=== PATIENT | female | born 1990 | race Caucasian/White ===

== ENCOUNTER 2020-01-10 19:27 | Observation (INO) ==
[2020-01-10 21:42] LABS: Bacteria,Urine Occasional /HPF (Few); Bilirubin,Urine Negative (Negative); Blood, Urine Negative (Negative); Glucose,Urine (UA) Negative (Negative); Ketones,Urine Negative (Negative); Mucus,Urine Occasional /LPF (Occasional); Nitrite,Urine Negative (Negative); Protein,Urine Negative; Squamous Epithelial Cell,Urine Occasional /HPF (0-10); Urine Appearance CLEAR (Clear); Urine Color Yellow (Yellow); Urine Specific Gravity 1.014 (1.001-1.035); Urine Urobilinogen < 2.0 EU/DL (0.2-1.0)
[2020-01-10] MEDS ORDERED: ONDANSETRON 4 MG/2 ML VIAL IV ONE (23:06)
[2020-01-10] MEDS ORDERED: SODIUM CHLORIDE 0.9% 1,000 ML IV STA (23:06)
[2020-01-10] MEDS ORDERED: MORPHINE 4 MG/1 ML VIAL IV STA (23:06)
[2020-01-10 23:41] LABS: Basophils # 0.1 10*3/uL (0.0-0.2); Basophils % 0.3 % (0.0-0.8); Eosinophils # 0.7 10*3/uL (0.0-0.87); Eosinophils % 3.2 % (0.00-10.9); Hematocrit 44.9 VOL% (35.7-47.0); Hemoglobin 14.4 GM/DL (12.0-16.0); Immature Granulocytes % 0.6 %; Immature Granulocytes Absolute 0.12 #; Lymphocytes # 4.4 10*3/uL (1.4-4.0); Lymphocytes % 21.4 % (21.3-54.2); Mean Corpuscular HGB Conc 32.1 GM/DL (32-36); Mean Corpuscular Volume 85.9 FL (87-102); Mean Platelet Volume 10.9 FL (9.6-12.0); Monocytes % 5.6 % (1.7-12.7); Neutrophils % 68.9 % (38.7-73.9); Platelet Count 326 T/CUMM (130-400); Red Blood Count 5.23 MC/CUMM (3.8-5.5); Red Cell Distribution Width 14.5 % (9.3-17.3); White Blood Count 20.6 T/CUMM (4-12)
[2020-01-11 00:03] LABS: Eosinophils 5 % (0-10); Lymphocytes 23 % (20-55); Platelet Estimate Normal; Segmented Neutrophils 69 % (50-85); Total Cells Counted 100
[2020-01-11 00:10] LABS: Albumin 3.7 G/DL (3.4-5.0); Bilirubin,Total 0.6 MG/DL (0.2-1.0); Calcium 9.2 MG/DL (8.5-10.1); Osmolality,Calculated 278.5 MOS/KG (273-304); Total Protein 8.3 G/DL (6.4-8.3)
[2020-01-11] MEDS ORDERED: PIPERACILLIN/TAZOBACTAM 3,375 MG in SODIUM CHLORIDE 0.9% 100 ML IV STA (01:27)
[2020-01-11] MEDS ORDERED: ONDANSETRON 4 MG/2 ML VIAL IV PRN (01:32)
[2020-01-11] MEDS: DEXTROSE 5% NACL 0.45% 1,000 ML IV SCH ×3 (04:08→21:12)
[2020-01-11] MEDS ORDERED: MORPHINE 4 MG/1 ML VIAL IV PRN ×2 (04:36)
[2020-01-11 06:53] LABS: Basophils # 0.1 10*3/uL (0.0-0.2); Basophils % 0.3 % (0.0-0.8); Eosinophils # 0.7 10*3/uL (0.0-0.87); Eosinophils % 4.5 % (0.00-10.9); Hematocrit 41.4 VOL% (35.7-47.0); Hemoglobin 13.3 GM/DL (12.0-16.0); Immature Granulocytes % 0.4 %; Immature Granulocytes Absolute 0.07 #; Lymphocytes # 3.2 10*3/uL (1.4-4.0); Lymphocytes % 20.3 % (21.3-54.2); Mean Corpuscular HGB Conc 32.1 GM/DL (32-36); Mean Corpuscular Volume 85.2 FL (87-102); Mean Platelet Volume 10.9 FL (9.6-12.0); Monocytes % 6.4 % (1.7-12.7); Neutrophils % 68.1 % (38.7-73.9); Platelet Count 270 T/CUMM (130-400); Red Blood Count 4.86 MC/CUMM (3.8-5.5); Red Cell Distribution Width 14.5 % (9.3-17.3); White Blood Count 15.7 T/CUMM (4-12)
[2020-01-11 08:23] LABS: Bilirubin,Total 0.7 MG/DL (0.2-1.0); Calcium 8.5 MG/DL (8.5-10.1); Osmolality,Calculated 277.7 MOS/KG (273-304); Total Protein 7.2 G/DL (6.4-8.3)
[2020-01-11] MEDS ORDERED: KETOROLAC 30 MG/1 ML VIAL IV ONE (08:29)
[2020-01-11] MEDS: PIPERACILLIN/TAZOBACTAM 3,375 MG in SODIUM CHLORIDE 0.9% 100 ML IV SCH ×2 (09:14→17:45)
[2020-01-11] MEDS: PANTOPRAZOLE 40 MG VIAL IV SCH (09:15)
[2020-01-11] MEDS ORDERED: GLUCAGON 1 MG VIAL IM PRN (12:10)
[2020-01-11] MEDS ORDERED: DEXTROSE 50% 25 GM/50 ML VIAL IV PRN (12:10)
[2020-01-11] MEDS: FLUoxetine 10 MG CAPSULE PO SCH (12:28)
[2020-01-11] MEDS: METOPROLOL TARTRATE 50 MG TABLET PO SCH ×2 (12:29→21:16)
[2020-01-11] MEDS: lisinopriL 10 MG TABLET PO SCH (12:30)
[2020-01-11] MEDS: KETOROLAC 15 MG/1 ML VIAL IV SCH ×2 (15:19→21:15)
[2020-01-11] MEDS: INSULIN REGULAR 100 UNIT/ML SUBCUT SCH ×2 (16:38→21:13)
[2020-01-12] MEDS: PIPERACILLIN/TAZOBACTAM 3,375 MG in SODIUM CHLORIDE 0.9% 100 ML IV SCH ×3 (02:51→18:01)
[2020-01-12] MEDS: KETOROLAC 15 MG/1 ML VIAL IV SCH ×4 (02:51→21:00)
[2020-01-12] MEDS: DEXTROSE 5% NACL 0.45% 1,000 ML IV SCH ×3 (04:52→17:44)
[2020-01-12 05:38] LABS: Basophils % 0.4 % (0.0-0.8); Eosinophils # 0.8 10*3/uL (0.0-0.87); Eosinophils % 8.4 % (0.00-10.9); Hematocrit 38.9 VOL% (35.7-47.0); Hemoglobin 12.4 GM/DL (12.0-16.0); Immature Granulocytes % 0.4 %; Immature Granulocytes Absolute 0.04 #; Lymphocytes # 3.3 10*3/uL (1.4-4.0); Mean Corpuscular HGB Conc 31.9 GM/DL (32-36); Mean Corpuscular Volume 86.3 FL (87-102); Mean Platelet Volume 11.1 FL (9.6-12.0); Monocytes % 6.5 % (1.7-12.7); Neutrophils % 51.3 % (38.7-73.9); Platelet Count 220 T/CUMM (130-400); Red Blood Count 4.51 MC/CUMM (3.8-5.5); Red Cell Distribution Width 14.5 % (9.3-17.3)
[2020-01-12 05:55] LABS: Calcium 8.3 MG/DL (8.5-10.1); Osmolality,Calculated 281.3 MOS/KG (273-304)
[2020-01-12 06:11] LABS: Risk Ratio 5.21; VLDL CHOLESTEROL 25.4 MG/DL
[2020-01-12] MEDS ORDERED: ceFAZolin 1,000 MG in SYRINGE 1 EACH IV ONE (07:00)
[2020-01-12] MEDS: INSULIN REGULAR 100 UNIT/ML SUBCUT SCH ×4 (08:19→22:18)
[2020-01-12] MEDS: PANTOPRAZOLE 40 MG VIAL IV SCH (09:13)
[2020-01-12] MEDS: METOPROLOL TARTRATE 50 MG TABLET PO SCH ×2 (09:13→21:00)
[2020-01-12] MEDS: lisinopriL 10 MG TABLET PO SCH (09:13)
[2020-01-12] MEDS: FLUoxetine 10 MG CAPSULE PO SCH (09:14)
[2020-01-12] MEDS: PANTOPRAZOLE 40 MG TABLET PO SCH (09:14)
[2020-01-12] MEDS ORDERED: LIDOCAINE 1%/EPI INJ 20 ML VIAL ONE (09:30)
[2020-01-12] MEDS ORDERED: BUPIVACAINE MPF 0.25% 30 ML VIAL ONE (09:30)
[2020-01-12] MEDS ORDERED: ceFAZolin 1,000 MG VIAL ONE (09:42)
[2020-01-12] MEDS ORDERED: TISSUE ADHESIVE 1 EACH APPLICATOR TOP ONE (11:56)
[2020-01-12] MEDS ORDERED: HYDROmorphone 2 MG/1 ML VIAL IV PRN ×2 (12:06→12:42)
[2020-01-12] MEDS ORDERED: LIDOCAINE 2% 5 ML VIAL ONE (12:25)
[2020-01-12] MEDS ORDERED: GLYCOPYRROLATE 0.4 MG/2 ML VIAL ONE (12:26)
[2020-01-12] MEDS ORDERED: SUCCINYLCHOLINE 200 MG/10 ML VIAL ONE (12:26)
[2020-01-12] MEDS ORDERED: ROCURONIUM 100 MG/10 ML VIAL IV ONE (12:26)
[2020-01-12] MEDS ORDERED: ACETAMINOPHEN 1,000 MG/100 ML VIAL IV ONE (12:26)
[2020-01-12] MEDS ORDERED: SEVOFLURANE 1 UNIT/15 MINUTE INH ONE (12:26)
[2020-01-12] MEDS ORDERED: PHENYLEPHRINE 10 MG/1 ML VIAL IV ONE (12:26)
[2020-01-12] MEDS ORDERED: fentaNYL 250 MCG/5 ML VIAL ONE (12:26)
[2020-01-12] MEDS ORDERED: NEOSTIGMINE 10 MG/10 ML VIAL ONE (12:26)
[2020-01-12] MEDS ORDERED: ONDANSETRON 4 MG/2 ML VIAL ONE ×2 (12:26→12:42)
[2020-01-12] MEDS ORDERED: DEXAMETHASONE 4 MG/1 ML VIAL ONE (12:26)
[2020-01-12] MEDS ORDERED: SODIUM CHLORIDE 0.9% 1,000 ML IV ONE (12:27)
[2020-01-12] MEDS ORDERED: SODIUM CHLORIDE 0.9% 100 ML IV ONE (12:27)
[2020-01-12] MEDS ORDERED: ONDANSETRON 4 MG/2 ML VIAL IV PRN (12:42)
[2020-01-12] MEDS ORDERED: HYDROmorphone 2 MG/1 ML VIAL ONE (13:19)
[2020-01-12] MEDS: POTASSIUM CHLORIDE 20 MEQ TABLET PO PRN ×2 (16:29→18:01)
[2020-01-13] MEDS: PIPERACILLIN/TAZOBACTAM 3,375 MG in SODIUM CHLORIDE 0.9% 100 ML IV SCH ×2 (02:25→10:50)
[2020-01-13] MEDS: KETOROLAC 15 MG/1 ML VIAL IV SCH ×2 (02:25→08:35)
[2020-01-13] MEDS: DEXTROSE 5% NACL 0.45% 1,000 ML IV SCH (02:25)
[2020-01-13] MEDS: POTASSIUM CHLORIDE 20 MEQ TABLET PO PRN (03:46)
[2020-01-13 07:00] LABS: Basophils % 0.2 % (0.0-0.8); Eosinophils # 0.1 10*3/uL (0.0-0.87); Eosinophils % 0.5 % (0.00-10.9); Hematocrit 34.6 VOL% (35.7-47.0); Immature Granulocytes % 0.5 %; Immature Granulocytes Absolute 0.08 #; Lymphocytes # 3.3 10*3/uL (1.4-4.0); Lymphocytes % 20.3 % (21.3-54.2); Mean Corpuscular HGB Conc 31.8 GM/DL (32-36); Mean Corpuscular Volume 86.7 FL (87-102); Mean Platelet Volume 11.4 FL (9.6-12.0); Monocytes % 6.9 % (1.7-12.7); Neutrophils % 71.6 % (38.7-73.9); Platelet Count 232 T/CUMM (130-400); Red Blood Count 3.99 MC/CUMM (3.8-5.5); Red Cell Distribution Width 14.6 % (9.3-17.3)
[2020-01-13 07:20] LABS: Calcium 8.6 MG/DL (8.5-10.1); Osmolality,Calculated 281.1 MOS/KG (273-304)
[2020-01-13] MEDS: INSULIN REGULAR 100 UNIT/ML SUBCUT SCH ×2 (08:06→11:35)
[2020-01-13] MEDS: METOPROLOL TARTRATE 50 MG TABLET PO SCH (08:35)
[2020-01-13] MEDS: PANTOPRAZOLE 40 MG TABLET PO SCH (08:35)
[2020-01-13] MEDS: FLUoxetine 10 MG CAPSULE PO SCH (08:35)
[2020-01-13] MEDS: lisinopriL 10 MG TABLET PO SCH (08:35)
[2020-01-13] MEDS: PANTOPRAZOLE 40 MG VIAL IV SCH (08:36)
[2020-01-13 11:42] VITALS: BP 110/60
== END 2020-01-13 15:55 | disposition home or self-care (01) ==
LOC: N.ED 19:27 → N.EDINP 19:27 → SUATTDRO 01-11 01:31 → N.3E 01-11 01:56
PROVIDERS: ADMIT Surgery; ATTEND Student in an Organized Health Care Education/Training Program